=== PATIENT | female | born 2000 | race Two or more races ===

== ENCOUNTER 2019-02-05 10:40 | Inpatient (IN) | payer OTHER ==
[2019-02-05 11:10] VITALS: BMI 24.6
[2019-02-05] MEDS ORDERED: BUTORPHANOL TARTRATE 1 MG/ML VIAL IVPB ONE (11:16)
--- NOTE | 2019-02-05 11:22 | HP ---
Past Medical History - Admission Chief Complaint: Oligohydramnios History of Present Illness: 18yo @ 39+wks, JACQUES 02/09/19 here for IOL/augmentation for oligohydramnios. Sono today shows WAGNER 2. No VB/LOF. No ctx.+FM Seen twice in the last 24hours for labor assessment, previously 2cm, now upon presentation 5cm. PNC @ [address] [place] [address], uncomplicated. GBS neg. History Source: Patient Limitations to Obtaining History: No Limitations - Past Medical History LISW: No: Alzheimer's, CVA, Dementia, Migraine, Multiple Sclerosis, Peripheral Neuropathy, Parkinson's, Seizure, Syncope, TIA, Vertigo, Other Cardiovascular: No: AFIB, Aneurysm, Aortic Insufficiency, Aortic Stenosis, CAD, CHF, Deep Vein Thrombosis, HTN, Hyperlipdemia, [place], Mitral Insufficiency, Mitral Stenosis, Murmur, Pulmonary Hypertension, Other Pulmonary: No: Asthma, Bronchitis, Cancer, COPD, O2 Dependent, Pneumonia, Previously Intubated, Pulmonary Embolus, Pulmonary Fibrosis, Sleep Apnea, Other Gastrointestinal: No: Ascites, Cancer, Constipation, Crohn's Disease, Diverticulitis, Diverticulosis, Esophageal Varices, Gastritis, GERD, GI Bleed, Hemorrhoids, Hiatal Hernia, Inflamatory Bowel Disease, Irritable Bowel Disease, Pancreatitis, Peptic Ulcer Disease, Ulcerative Colitis, Other Hepatobiliary: No: Cirrhosis, Cholelithiasis, Cholecystitis, Choledocholithiasis , Hepatitis A, Hepatitis B, Hepatitis C, Other Renal/: No: Renal Failure, Renal Inusuff, BPH, Cancer, Hematuria, Hemodialysis , Neurogenic Bladder, Renal Calculi, UTI, Other Reproductive: No: Ectopic , Endometriosis, Fibroids, PID, Polycystic Ovary Syndrome, Postmenopausal, Other ...: 1 ...LMP: 04/30/18 ... Weeks Gestation by Dates: 40.1 ...EDC by Dates: 02/04/19 ...EDC by Sono: 02/09/19 Heme/Onc: Yes: Anemia Infectious Disease: No: AIDS, C-Diff, Herpes Zoster, HIV, MRSA, STD's, Tuberculosis, VREF, Other Psych: No: Addictions, Anxiety, Bipolar, Depression, Panic, Psychosis, Schizophrenia, Other Musculoskeletal: No: Bursitis, Chronic low back pain, Hemiparesis, Hemiplegia, Osteoarthritis, Paraplegia, Other Rheumatology: No: Fibromyalgia, Gout, Lupus, Rheumatoid Arthritis, Sarcoidosis, Vasculitis, Other ENT: No: Allergic Rhinitis, Sinusitis, Other Endocrine: No: En's Disease, [place]'s Disease, Diabetes Insipidus, Diabetes Mellitus, Hyperparathyroidism, Hyperthyroidism, Hypothyroidism, Osteopenia, SIADH, Other - Past Surgical History Past Surgical History: Yes: None Hx Myomectomy: No Hx Transabdominal Cerclage: No - Smoking History Smoking history: Never smoked Have you smoked in the past 12 months: No - Alcohol/Substance Use Hx Alcohol Use: No History of Substance Use: reports: None - Social History ADL: Independent History of Recent Travel: No Home Medications - Allergies Allergies/Adverse Reactions: Allergies Allergy/AdvReac Type Severity Reaction Status Date / Time No Known Allergies Allergy Verified 02/05/19 11:15 - Home Medications Home Medications: Ambulatory Orders Multi Tablet 1 tablet PO DAILY 02/05/19 Physical Exam - Maternity Vital Signs: Vital Signs Temperature 72 F L 02/05/19 11:02 Pulse Rate 81 02/05/19 11:02 Respiratory Rate 18 02/05/19 11:02 Blood Pressure 123/66 02/05/19 11:02 O2 Sat by Pulse Oximetry (%) Constitutional: Yes: Well Nourished, No Distress, Calm - Abdominal Exam/OB Number of Fetuses: Single Presentation: Vertex Contractions: No Monitor Mode: External Heart Rate Location: [facility] Category: I Accelerations: Non-Uniform Decelerations: None - Vaginal Exam/OB Vaginal Bleediing: No Dilatation (cm): 5 Effacement (%): 70 Amniotic Membrane Status: Intact Presentation: Vertex/Position Station: -3 - Physical Exam Edema: No Assessment/Plan 18yo @ 39.3wks here for IOL/augmentation for oligohydramnios, labor Admit to L&D Cat I tracing Pitocin/AROM for IOL/augmentation Stadol/epidural Anticipate NADEEM Chacko MD
[2019-02-05] MEDS ORDERED: DEXTROSE 5%-LACTATED RINGERS 1,000 ML IV SCH (11:30)
[2019-02-05 12:19] LABS: BASO % 0.4 % (0-2.0); EOS % 0.1 % (0-4.5); HEMATOCRIT 26.4 % (32.4-45.2); HEMOGLOBIN 8.8 GM/dL (10.7-15.3); LYMPH % 13.6 % (8-40); MCH 25.1 pg (25.7-33.7); MCHC 33.3 g/dl (32.0-36.0); MEAN CELL VOLUME 75.3 fl (80-96); MEAN PLT VOLUME 8.7 fl (7.5-11.1); MONO % 4.9 % (3.8-10.2); PLATELET COUNT 327 K/MM3 (134-434); RBC 3.51 M/mm3 (3.60-5.2); RDW 16.2 % (11.6-15.6)
[2019-02-05 12:26] LABS: INR 0.91 (0.83-1.09); PROTHROMBIN TIME (PATIENT) 10.7 SEC (9.7-13.0)
[2019-02-05 12:36] LABS: BLOOD UREA NITROGEN 8.4 mg/dL (7-18); CALCIUM 8.3 mg/dL (8.5-10.1); CREATININE 0.7 mg/dL (0.55-1.3); POTASSIUM 3.8 mmol/L (3.5-5.1)
--- NOTE | 2019-02-05 13:32 | PN ---
Progress Note, Labor Vaginal Exam #1 Labor Exam Date: 02/05/19 Labor Exam Time: 13:31 Heart Rate (range): Cat I Dilatation: 5 Effacement (%): 100 Amniotic Membrane Status: Ruptured Presentation: Vertex/Position Station: -3 Remarks: AROM, scant clears Pitocin prn Anticipate Soniya Chacko MD
[2019-02-05] MEDS ORDERED: BUTORPHANOL TARTRATE 1 MG/ML VIAL ONE ×4 (14:32→16:43)
[2019-02-05] MEDS ORDERED: PROMETHAZINE HCL 25 MG/1 ML VIAL ONE ×2 (14:33→16:43)
[2019-02-05] MEDS ORDERED: OXYTOCIN 30 UNITS in 0.9% NS 30 UNIT/500 ML INFUS.BAG IVPB ONE (15:29)
--- NOTE | 2019-02-05 16:12 | PN ---
Progress Note, Labor Vaginal Exam #1 Labor Exam Date: 02/05/19 Labor Exam Time: 16:00 Heart Rate (range): 130 Dilatation: 5-6 Effacement (%): 90 Amniotic Membrane Status: Ruptured Presentation: Vertex/Position Station: -1 Remarks: fhr cat-1 uc 3-5 min irregular s/p stadol 2mg + phenergan 25 mg iv stat at 2.30 PM sono from 02/05/19 sono 39.3 wks vx, stacey 2.5 , efw 6'15", oligo , 6/8 plan pitocin augmentation Selected Entries 02/05/19 15:00 Temperature 98.6 F Pulse Rate 79 Blood Pressure 100 Mean Labs : h/h 8.8/26.4, plt 327, BMP wnl , gl 118 4.45 PM stadol 2mg + phenrgan 25 mg iv stat was given Vaginal Exam #2 Labor Exam Date: 02/05/19 Labor Exam Time: 18:45 Heart Rate (range): 130 Dilatation: 8-9 Effacement (%): 90 Amniotic Membrane Status: Ruptured Presentation: Vertex/Position Station: +1 Remarks: fhr 130, ? early decel cat-1 uc 2 min Selected Entries 02/05/19 17:07 Temperature 98.3 F Pulse Rate 77 Blood Pressure 128/63 Laboratory Tests 02/05/19 02/05/19 11:17 11:17 Hct Cancelled RDW Cancelled Sodium Cancelled Chloride Cancelled Carbon Dioxide Cancelled Vaginal Exam #3 Labor Exam Date: 02/05/19 Labor Exam Time: 19:30 Heart Rate (range): 150-160 Dilatation: 10 Effacement (%): 100 Amniotic Membrane Status: Ruptured Presentation: Vertex/Position Station: +2 (+2/+3) Remarks: pt pushing fhr cat-1 uc q2 min
[2019-02-05] MEDS ORDERED: OXYTOCIN 30 UNITS in 0.9% NS 30 UNIT/500 ML INFUS.BAG IVPB SCH (16:30)
[2019-02-05] MEDS ORDERED: BUTORPHANOL TARTRATE 1 MG/ML VIAL IVPUSH ONE (16:49)
[2019-02-05] MEDS ORDERED: PROMETHAZINE HCL 25 MG/1 ML VIAL IVPUSH ONE (16:49)
[2019-02-05] MEDS ORDERED: LIDOCAINE HCL 1% PRESERVATIVE FREE - 30ML VIAL ONE (18:06)
[2019-02-05] MEDS ORDERED: OXYTOCIN 20 UNITS in 0.9% NS 20 UNIT/1,000 ML INFUS.BAG IV ONE (18:06)
[2019-02-05] MEDS ORDERED: oxyCODONE HCL 5 MG TABLET PO PRN (20:46)
[2019-02-05] MEDS ORDERED: METHYLERGONOVINE MALEATE 0.2 MG/1 ML AMP IM PRN (20:46)
[2019-02-05] MEDS ORDERED: WITCH HAZEL 50% (TUCKS) 40 PAD/JAR PAD TP PRN (20:46)
[2019-02-05] MEDS ORDERED: BENZOCAINE 28 GM HEMORRHOIDAL OINTMENT TP PRN (20:46)
[2019-02-05] MEDS ORDERED: BENZOCAINE 20% 57 GM BOTTLE TP PRN (20:46)
[2019-02-05] MEDS ORDERED: BISACODYL 10 MG SUPP.RECT RC PRN (20:46)
[2019-02-05] MEDS ORDERED: OXYTOCIN 20 UNITS in 0.9% NS 20 UNIT/1,000 ML INFUS.BAG IV SCH (21:00)
--- NOTE | 2019-02-05 21:02 | PN ---
Delivery - Delivery Vaginal Delivery: No Problems, Spontaneous (, vx, terrence position, baby girl, 9/9 , shoulder delievered without difficulty, nasal & oral suction done at perineum . . median episiotomy was given which was sutured in layers with chr catgut #2/0 under local anesthesia .placenta & membranes were delievered completely . bladder catheterized 30 ml urine drained cord blood collected, cord segment for cord blodd gas . pr ex mucosa & sphincter intact) Type of Anesthesia: Local Episiotomy/Laceration: Midline EBL (cc): 350 Delivery, Single - Stages of Labor Date 1st Stage Initiatied: 02/05/19 Time 1st Stage Initiated: 11:00 Date 2nd Stage Initiated: 02/05/19 Time 2nd Stage Initiated: 19:30 Date of Delivery: 02/05/19 Time of Delivery: 20:12 Date Placenta Delivered: 02/05/19 Time Placenta Delivered: 20:20 Placenta: Yes: Spontaneous, Uterine Exploration - Condition of Infant Infant Gender: Female Weight: 6 lb 10 oz Position: Left, OA Total Hours ROM (Hrs/Mins): 9/9 - 1 Minute Total Score: 9 5 Minutes Total Score: 9 - Feeding Plan Initial Plan: Exclusive throughout hospitalization Remarks - Remarks Remarks: 18 yrs , 39.4/7 weeks admitted in labor , sono oligo 2.0 cm gbs neg . pnc at [address] [place] [address] intrapartum iv stadol 2 mg + phenrgan 25 mg iv x 2 doses were given intrapartum course uneventful
[2019-02-05] MEDS: ACETAMINOPHEN 325 MG TABLET (FP) PO PRN (23:23)
[2019-02-05] MEDS: IBUPROFEN 600 MG TABLET (FP) PO PRN (23:24)
[2019-02-06] MEDS: IBUPROFEN 600 MG TABLET (FP) PO PRN ×4 (05:50→20:59)
[2019-02-06] MEDS: ACETAMINOPHEN 325 MG TABLET (FP) PO PRN ×4 (05:50→20:59)
[2019-02-06 07:17] LABS: BASO % 0.2 % (0-2.0); EOS % 0.1 % (0-4.5); HEMATOCRIT 23.1 % (32.4-45.2); HEMOGLOBIN 7.1 GM/dL (10.7-15.3); LYMPH % 13.3 % (8-40); MCH 23.8 pg (25.7-33.7); MCHC 30.7 g/dl (32.0-36.0); MEAN CELL VOLUME 77.4 fl (80-96); MEAN PLT VOLUME 9.1 fl (7.5-11.1); NEUT % 79.4 % (42.8-82.8); PLATELET COUNT 274 K/MM3 (134-434); RBC 2.98 M/mm3 (3.60-5.2); RDW 16.3 % (11.6-15.6); WHITE BLOOD COUNT 16.8 K/mm3 (4.0-10.0)
--- NOTE | 2019-02-06 08:06 | PN ---
Post Progress Note - Subjective Subjective: no c/o dizziness bleeding moderate . no c/o cramps voided without difficulty Post Day: 1 Type of Delivery: Vital Signs: Vital Signs Temperature 99 F 02/06/19 05:55 Pulse Rate 83 02/06/19 05:55 Respiratory Rate 18 02/06/19 05:55 Blood Pressure 102/45 L 02/06/19 05:55 O2 Sat by Pulse Oximetry (%) 98 02/05/19 22:30 Breast Exam: Yes: Soft, Other (will attempt to BF ). No: Engorged Uterus: Yes: Fundus Firm, Fundus below umbilicus, Non-tender Lochia: Yes: Rubra Lochia, amount: Moderate Extremities: Yes: Calves non-tender Perineum: Yes: Episiotomy (healing ) Activity: Ambulating - Labs Labs: CBC WBC 16.8 K/mm3 (4.0-10.0) H 02/06/19 06:21 Corrected WBC (auto) Cancelled 02/05/19 11:17 RBC 2.98 M/mm3 (3.60-5.2) L 02/06/19 06:21 Hgb 7.1 GM/dL (10.7-15.3) L 02/06/19 06:21 Hct 23.1 % (32.4-45.2) L 02/06/19 06:21 MCV 77.4 fl (80-96) L 02/06/19 06:21 MCH 23.8 pg (25.7-33.7) L 02/06/19 06:21 MCHC 30.7 g/dl (32.0-36.0) L 02/06/19 06:21 RDW 16.3 % (11.6-15.6) H 02/06/19 06:21 Plt Count 274 K/MM3 (134-434) 02/06/19 06:21 MPV 9.1 fl (7.5-11.1) 02/06/19 06:21 Absolute Neuts (auto) 13.4 K/mm3 (1.5-8.0) H 02/06/19 06:21 Neutrophils % 79.4 % (42.8-82.8) 02/06/19 06:21 Lymphocytes % 13.3 % (8-40) 02/06/19 06:21 Monocytes % 7.0 % (3.8-10.2) 02/06/19 06:21 Eosinophils % 0.1 % (0-4.5) 02/06/19 06:21 Basophils % 0.2 % (0-2.0) 02/06/19 06:21 Nucleated RBC % 0 % (0-0) 02/06/19 06:21 Platelet Estimate Cancelled 02/05/19 11:17 Platelet Comment Cancelled 02/05/19 11:17 Problem List - Problems (1) with 39 completed weeks gestation Code(s): Z3A.39 - 39 WEEKS GESTATION OF (2) (normal spontaneous vaginal delivery) Code(s): O80 - ENCOUNTER FOR FULL-TERM UNCOMPLICATED DELIVERY (3) Anemia Problems reviewed: Yes Code(s): D64.9 - ANEMIA, UNSPECIFIED Qualifiers: Anemia type: iron deficiency Iron deficiency anemia type: inadequate dietary iron intake Qualified Code(s): D50.8 - Other iron deficiency anemias (4) Encounter for care and examination after delivery Code(s): Z39.2 - ENCOUNTER FOR ROUTINE FOLLOW-UP Assessment/Plan ppd #1 , anemia severe stable hemodynamically stable counselled for anemia discuss blood transfusion versus po iron & PNV , high iron diet ( expectant management ) r/b/a told pt declined blood transfusion discharge tomorrow if stable
[2019-02-06] MEDS: FERROUS SO4 325 MG TABLET (FP) PO SCH ×2 (09:10→17:08)
[2019-02-06] MEDS ORDERED: FLU VACC QS2019-20(6MOS UP)/PF 60 MCG/0.5 ML SYRINGE IM ONE (10:00)
[2019-02-06] MEDS ORDERED: FLU VACCINE QUAD 60 MCG/0.5 ML (MDV 19-20) IM ONE (10:00)
[2019-02-06] MEDS: PRENATAL VITAMINS W/ FOLIC ACID TABLET (FP) PO SCH (10:30)
[2019-02-06] MEDS ORDERED: SENNOSIDES/DOCUSATE COMBO (SENNA PLUS) TABLET (UD) PO PRN (22:00)
--- NOTE | 2019-02-07 07:59 | DS ---
Physical Examination Vital Signs: Vital Signs Temperature 98.6 F 02/06/19 21:44 Pulse Rate 80 02/06/19 21:44 Respiratory Rate 20 02/06/19 21:44 Blood Pressure 103/50 L 02/06/19 21:44 O2 Sat by Pulse Oximetry (%) 98 02/05/19 22:30 Constitutional: Yes: Well Nourished, No Distress, Calm Eyes: Yes: WNL, Conjunctiva Clear, EOM Intact HENT: Yes: WNL, Atraumatic, Normocephalic Neck: Yes: WNL, Supple, Trachea Midline Cardiovascular: Yes: WNL, Regular Rate and Rhythm Respiratory: Yes: WNL, Regular, CTA Bilaterally Gastrointestinal: Yes: WNL, Normal Bowel Sounds Musculoskeletal: Yes: WNL Extremities: Yes: WNL Edema: No Integumentary: Yes: WNL Neurological: Yes: WNL, Alert, Oriented ...Motor Strength: WNL Psychiatric: Yes: WNL Labs: CBC, BMP 02/06/19 06:21 02/05/19 11:57 Discharge Summary Problems reviewed: Yes Reason For Visit: LABOR ADMISSION Current Active Problems Anemia (Acute) Encounter for care and examination after delivery (Acute) (normal spontaneous vaginal delivery) (Acute) with 39 completed weeks gestation (Acute) Procedures: Principal: Hospital Course: Patient presented for IOL for oligohydramnios She had an uncomplicated She met all milestones She was discharged home on PPD#2 Health Concerns: None Plan of Treatment: Routine PP care Condition: Stable - Instructions Diet, Activity, Other Instructions: Post Instructions DIET: Continue good diet high in protein, calcium, and iron rich foods. Drink at least eight (8) glasses of water daily in addition to other fluids. ct Regular diet MEDICATIONS: Continue vitamins and iron as previously directed. Motrin and Tylenol may be taken for minor discomfort. ACTIVITY: Mild to moderate exercise may be started in two (2) weeks. Take frequent rest periods. Resume normal activity after six (6) week check up. WOUND CARE OF OPERATIVE SITE: Continue use of perineal bottle until vaginal discharge stops. Keep area clean. Shower daily. Keep abdominal wound dry. Report any drainage or redness to physician. Tub baths, tampons and douches are not permitted for [address] Breast feeding & or Bottle feeding BREAST CARE: (For those that are not ): If engorgement occurs: Wear tight fitting bra. Take Tylenol or Motrin for pain. Apply cold packs (ice in bags to each breast ) FAMILY PLANNING: There are many control alternatives to pursue and they should be discussed at your first office visit. You may resume sexual activity after your six (6) week check up. (Remember, breast feeding is not a contraceptive) NEXT PHYSICIAN APPOINTMENT: Be certain to call for afour- six (4- 6) week appointment, unless otherwise directed. Call Clinic or got to Emergency Dept if you have any of the following: Heavy vaginal bleeding Painful urination Leg pain Unusual odor noted to vaginal bleeding High fever Red streaking noted on breast Referrals: Beth Cohen MD [Staff Physician] - Disposition: HOME - Home Medications Comprehensive Discharge Medication List: Ambulatory Orders Multi Tablet 1 tablet PO DAILY 02/05/19 Acetaminophen [Tylenol .Regular Strength -] 650 mg PO Q3H PRN tablet 02/06/19 Benzocaine [Americaine 20% [place] -] 1 spray TP PRN PRN bottle 02/06/19 Ferrous Sulfate [Feosol] 325 mg PO BIDWM #60 tab 02/06/19 Ibuprofen [Motrin -] 200 mg PO Q4H PRN tablet 02/06/19 Vitamins (Sjr) - 1 tab PO DAILY #30 tablet 02/06/19 Sennosides/Docusate Sodium [Pericolace -] 2 tablet PO HS PRN #30 tablet Witch Olga 50% (Tucks) [Tucks Pads -] 1 pad TP PRN PRN pad 02/06/19
[2019-02-07] MEDS: FERROUS SO4 325 MG TABLET (FP) PO SCH (08:37)
[2019-02-07] MEDS: ACETAMINOPHEN 325 MG TABLET (FP) PO PRN (08:46)
[2019-02-07] MEDS: IBUPROFEN 600 MG TABLET (FP) PO PRN (08:46)
[2019-02-07] MEDS: PRENATAL VITAMINS W/ FOLIC ACID TABLET (FP) PO SCH (11:27)
[2019-02-07 12:40] VITALS: BP 117/69; PULSE 72; TEMP 98.9
== END 2019-02-07 13:00 | disposition home or self-care (01) | DRG 560 ==
LOC: JLDR 10:40 → J3W 23:00
PROVIDERS: ADMIT Obstetrics & Gynecology; ATTEND Obstetrics & Gynecology
PROC: 0W8NXZZ Division of Female Perineum, External Approach (ICD-10-PCS; principal; 2019-02-05)
PROC: 10E0XZZ Delivery of Products of Conception, External Approach (ICD-10-PCS; 2019-02-05)
DX: O41.03X0 Oligohydramnios, third trimester, not applicable or unspecified (principal); Z3A.39 39 weeks gestation of pregnancy; Z37.0 Single live birth
CPT/HCPCS: 36415; 36600; 59409; 80048; 82803; 85025; 85610; 85730; 86593; 86850; 86900; 86901; 90686